=== PATIENT | male | born 1970 | race Two or more races ===

== ENCOUNTER 2020-12-14 16:09 | Emergency (ER) | payer SELFPAY ==
[~2020-12-14] VITALS: Ht 182.9 cm; Wt 93.0 kg
[2020-12-14 16:46] LABS: Basophils # (auto) 0.1 10 ^3/uL (0-0.2); Basophils % (auto) 0.6 % (0.0-2.0); Lymphocytes # (auto) 2.4 10 ^3/uL (0.4-5.4); Monocytes # (auto) 1.4 10 ^3/uL (0-1.3); Nucleated Red Blood Cells % 0.1 %
[2020-12-14 16:48] LABS: Eosinophils # (auto) 0.2 10 ^3/uL (0-0.8); Eosinophils % (auto) 1.3 % (0.0-7.0); Hematocrit 53.3 % (41.0-53.0); Hemoglobin 18.7 g/dL (13.5-17.5); Lymphocytes % (auto) 15.7 % (10.0-50.0); Mean Corpuscular Volume 91.3 fL (80.0-100.0); Monocytes % (auto) 9.1 % (0.0-12.0); Neutrophils % (auto) 73.3 % (37.0-80.0); Platelet Count (auto) 639 10^3/uL (140-450); Red Blood Cells 5.84 10^6/uL (4.5-5.90); Red Cell Distribution Width 13.2 % (11.8-14.3)
[2020-12-14 17:03] LABS: Albumin 4.6 g/dL (3.4-5.0); Calcium 11.4 mg/dL (8.5-10.1)
[2020-12-14 17:06] LABS: BUN/Creatinine Ratio 8.9; Bilirubin, Total 0.8 mg/dL (0.2-1.0); Total Protein 8.8 g/dL (6.4-8.2)
[2020-12-14] MEDS ORDERED: SODIUM CHLORIDE 0.9% 1,000 ML IV ONE (20:45)
[2020-12-14] MEDS ORDERED: POTASSIUM CHL 20 Meq TABLET PO ONE (20:45)
[2020-12-14] MEDS ORDERED: cefTRIAXone 1GM/50ML D5W 50 ML IV ONE (21:30)
[2020-12-14 21:40] VITALS: BP 114/85
== END 2020-12-14 22:52 | disposition home or self-care (01) ==
LOC: ER 16:09
DX: L03.116 Cellulitis of left lower limb (principal); E86.0 Dehydration; F17.210 Nicotine dependence, cigarettes, uncomplicated; F12.10 Cannabis abuse, uncomplicated; D47.3 Essential (hemorrhagic) thrombocythemia; D58.2 Other hemoglobinopathies
CPT/HCPCS: 36415; 80053; 85025; 93005; 93971; 96365; 99285; J0696; J7030; 96361